=== PATIENT | female | born 1970 | race Caucasian/White ===

== ENCOUNTER 2021-03-22 05:16 | Emergency (ER) | payer BC ==
[2021-03-22 06:11] LABS: HEMOGLOBIN 14.9 gm/dl (12.3-15.3); RED BLOOD COUNT 4.84 M/UL (4.00-5.10); WHITE BLOOD COUNT 12.6 K/UL (4.5-11.0)
[2021-03-22 06:46] LABS: BUN/CREATININE RATIO 14 (0-10)
== END 2021-03-22 09:00 | disposition home or self-care (01) ==
LOC: ER1 05:16
PROVIDERS: Family Medicine
DX: R07.89 Other chest pain (principal); Z88.5 Allergy status to narcotic agent
CPT/HCPCS: 80053; 82550; 82553; 83874; 84484; 85025; 85610; 93005; 99284; Q9967

== ENCOUNTER → 2022-02-24 | Outpatient (CLI) | payer BC | LOC: KOH-I 08:56 | DX: R10.84 Generalized abdominal pain (principal); K80.20 Calculus of gallbladder without cholecystitis without obstruction | CPT/HCPCS: 76705 ==